=== PATIENT | male | born 1940 | race Caucasian/White ===

== ENCOUNTER 2025-09-12 10:30 | Outpatient (CLI) | payer MEDICARE, BC | END 2025-09-12 23:59 | disposition home or self-care (01) | LOC: WOU 10:30 | PROVIDERS: ATTEND Podiatrist Foot & Ankle Surgery | DX: L84 Corns and callosities (principal); I87.2 Venous insufficiency (chronic) (peripheral); M79.672 Pain in left foot; M20.42 Other hammer toe(s) (acquired), left foot; M20.41 Other hammer toe(s) (acquired), right foot | CPT/HCPCS: 11056; G0463 ==